=== PATIENT | male | born 2000 | race Two or more races ===

== ENCOUNTER 2021-09-02 20:47 | Emergency (ER) | payer OTHER ==
[~2021-09-02] VITALS: Ht 175.3 cm; Wt 109.0 kg
[2021-09-02 21:06] VITALS: BP 138/86
== END 2021-09-03 00:46 | disposition left against medical advice (07) ==
LOC: ER 20:47
DX: R10.9 Unspecified abdominal pain (principal); Z53.21 Procedure and treatment not carried out due to patient leaving prior to being seen by health care provider